=== PATIENT | male | born 1995 | race Caucasian/White ===

== ENCOUNTER 2019-02-13 11:25 | Emergency (ER) | payer OTHER ==
[~2019-02-13] VITALS: Wt 98.4 kg
== END 2019-02-13 13:37 | disposition home or self-care (01) ==
LOC: ED 11:25
DX: M54.5 Low back pain (principal); W17.89XA Other fall from one level to another, initial encounter; Y93.89 Activity, other specified; Y92.89 Other specified places as the place of occurrence of the external cause; Y99.8 Other external cause status